=== PATIENT | male | born 1985 | race Caucasian/White ===

== ENCOUNTER 2017-05-12 05:43 | Emergency (ER) | payer OTHER ==
[2017-05-12 07:43] LABS: BEDSIDE GLUCOSE 80 MG/DL (70-105)
[2017-05-12] MEDS: TETRACAINE 0.5% OPHTH SOLN 4ML OU (07:45)
== END 2017-05-12 08:48 | disposition home or self-care (01) ==
LOC: M ED 05:43
DX: H53.9 Unspecified visual disturbance (principal); Z91.013 Allergy to seafood
CPT/HCPCS: 70450